=== PATIENT | male | born 1980 | race Caucasian/White ===

== ENCOUNTER 2017-06-21 09:27 | Day surgery (SDC) | payer BC ==
[2017-06-20 08:47] VITALS: BMI 29.1
[2017-06-21] MEDS ORDERED: Oxymetazoline HCl 0.05% ( 15 ML ) ONE (10:08)
[2017-06-21] MEDS ORDERED: Midazolam HCl 2 mg/2 ml Vial ONE (10:43)
[2017-06-21] MEDS ORDERED: Fentanyl 250 MCG/5 ML VIAL ONE (11:12)
[2017-06-21] MEDS ORDERED: Lidocaine 1% w/Epinephrine 1:200K 30 ML VIAL ONE (11:15)
[2017-06-21] MEDS ORDERED: Bacitracin Zinc Ointment 30 gm TUBE ONE (11:16)
[2017-06-21] MEDS ORDERED: Ondansetron HCl/PF 4 MG/2 ML Vial ONE (12:04)
[2017-06-21] MEDS ORDERED: Dexamethasone 20 MG/5 ML VIAL ONE (12:04)
[2017-06-21] MEDS ORDERED: Propofol 200 MG/20 ML VIAL ONE ×2 (12:04)
[2017-06-21] MEDS ORDERED: Lidocaine 2% PF 10 ML AMP (For Epidural Use) ONE (12:04)
[2017-06-21] MEDS ORDERED: Glycopyrrolate 0.2 MG/ML 5 ML SYRINGE ONE (12:04)
[2017-06-21] MEDS ORDERED: Ferric Subsulfate 8 ML BOT ONE (12:51)
--- NOTE | 2017-06-21 13:23 | OP ---
PREOPERATIVE DIAGNOSES: Chronic tonsillitis, hypertrophic obstructive tonsils, hypertrophic obstruc tive uvula, profound septal deformity, and hypertrophic obstructive inferior turbinates. PROCEDURES PERFORMED: 1. Septoplasty. 2. Bilateral nasal endoscopy with submucosal resection of inferior turbinates. 3. Tonsillectomy over 12 years of age. 4. Partial uvulectomy. PROCEDURE #1: SEPTOPLASTY. PROCEDURE IN DETAIL: After consent was obtained, the patient was identified, brought to the operati ng room, and placed on the operating room table in the supine position. Consent was obtained, notif patricia the patient of the possibility of additional infections, bleeding, brain injury, and eye/orbita l injury. The patient was placed on the operating room table, and general endotracheal anesthesia and intravenous access was obtained. The patient was then positioned, prepped and draped for endosc opic sinus surgery. Nasal preparation included trimming nasal vestibular hairs and spraying in topi chun Afrin. We then placed Afrin topical solution on nasal pledgets and strategically located them i ntranasally. The perinasal mucosa was injected with 1% lidocaine with 1:100,000 epinephrine in the submucoperichondrial plane of the septum, lateral nasal wall, and anterior to the uncinate. The pat ient was then prepped and draped in a sterile fashion and positioned for endoscopic sinus surgery. After local anesthesia was infiltrated into the submucoperichondrial plane, a standard [place] incis ion was made with a #15 blade down to the level of the septal cartilage. The caudal elevator was us ed to elevate the mucoperichondrium from the underlying cartilage. We then proceeded beyond the bon y cartilaginous junction and elevated the bony periosteum as well. Great attention was paid to the spur to prevent rent formation in the septal flap. A transcartilaginous incision was then made, whil e preserving an adequate dorsal and caudal cartilaginous strut for tip support. The deformed cartil age was removed and disarticulated from the bony cartilaginous junction and maxillary crest. This w as placed in saline and would later be crushed and returned to the mucoperichondrial envelope. We t hen elevated the contralateral periosteum from the bony cartilaginous region and removed the deforme d portions of the bone and bony spurs. The cartilage was then crushed and placed back into the muco perichondrial envelope and the mucosa was re-approximated with a quilting stitch composed of rapidly absorbent gut suture. The Guzman incision was also closed with interrupted gut suture. At the co mpletion of the case, Emmanuel splints were placed and suture secured to the caudal septum. At this point, we then turned our attention to the contralateral side and proceeded with endoscopic sinus surgery. At the completion of the case, Rice keel splints were placed in the ethmoid cavities after the ethmo idectomy. There were no complications. The patient tolerated the procedure well and was discharged to the recovery room in stable condition prior to return to the preoperative Day Stay with ultimate discharge home. Prescriptions for pain medication and antibiotics were provided. The patient rece ived intramuscular Depo-Medrol during the case. PROCEDURE #2: BILATERAL NASAL ENDOSCOPY WITH SUBMUCOSAL RESECTION OF INFERIOR TURBINATES. PROCEDURE IN DETAIL: After consent was obtained, the patient was identified, brought to the operati ng room, and placed on the operating room table in the supine position. Consent was obtained, notif patricia the patient of the possibility of additional infections, bleeding, brain injury, and eye/orbita l injury. The patient was placed on the operating room table, and general endotracheal anesthesia and intravenous access was obtained. The patient was then positioned, prepped and draped for endosc opic sinus surgery. Nasal preparation included trimming nasal vestibular hairs and spraying in topi chun Afrin. We then placed Afrin topical solution on nasal pledgets and strategically located them i ntranasally. The perinasal mucosa was injected with 1% lidocaine with 1:100,000 epinephrine in the submucoperichondrial plane of the septum, lateral nasal wall, and anterior to the uncinate. The pat ient was then prepped and draped in a sterile fashion and positioned for endoscopic sinus surgery. With the 0-degree endoscope, the patient underwent systematic nasal endoscopy. There were no suspic ious internasal masses or lesions identified. We then focused our attention to the osteomeatal comp adam region under the middle turbinate. At this point, we then turned our attention to the contralateral side and proceeded with endoscopic sinus surgery. At the completion of the case, Rice keel splints were placed in the ethmoid cavities after the ethmo idectomy. There were no complications. The patient tolerated the procedure well and was discharged to the recovery room in stable condition prior to return to the preoperative Day Stay with ultimate discharge home. Prescriptions for pain medication and antibiotics were provided. The patient rece ived intramuscular Depo-Medrol during the case. PROCEDURE #3: TONSILLECTOMY OVER 12 YEARS OF AGE. PROCEDURE IN DETAIL: After consent was obtained, the patient was identified, brought to the operati ng room, and placed on the operating table in the supine position. General endotracheal anesthesia and intravenous access was obtained and we proceeded with positioning the patient for oropharyngeal surgery. Oropharyngeal exposure was obtained with a Katrina-Conrado mouth gag after a head drape was pl aced and secured with a towel clip. The Katrina-Conrado mouth gag was then suspended from the [place] tray and palatal elevation was achieved with a red rubber catheter. The right tonsil was addressed firs t. We used a curved Allis to grasp the tonsil and retract it medially as an anterior pillar incisio n was made with a #12 blade. The retrotonsillar fascial plane was then established and blunt dissec tion was performed with the suction cautery. Blood vessels were anticipated, identified, and cauter ized as they were encountered. Ultimately, dissection was carried to the posterior tonsillar pillar mucosa which was incised hemostatically, as well as the base of tongue connection. The tonsil was then passed off as a specimen and bleeding points within the tonsillar bed were cauterized under dir ect visualization. We subsequently turned our attention to the contralateral side, where using a si milar technique, a near identical procedure was performed. Again, the tonsil was grasped and retrac gabbie medially with a curved Allis as an anterior pillar incision was made with a #12 blade. The retr otonsillar fascial plane was established and while the anterior pillar was retracted medially, the h emostatic blunt dissection of the tonsil with a suction cautery was performed with blood vessels ant icipated, identified, and cauterized as they were encountered. Again, dissection continued to the b ase of tongue and posterior tonsillar pillar mucosa which was incised in a hemostatic fashion. The tonsillar beds were then carefully inspected and bleeding points were identified and cauterized with a suction cautery. After this portion of the procedure, hemostasis was completely obtained. The p atient's oral cavity was copiously irrigated with iced saline and subsequently suctioned. We then u sed the red rubber catheter to suction the gastric contents and the patient was subsequently aroused , awakened, and extubated without difficulty and transported to the recovery room in stable conditio n. There were no complications. PROCEDURE #4: PARTIAL UVULECTOMY. PROCEDURE IN DETAIL: The uvula was then grasped and retracted inferiorly as vertical incisions were made on either side of the insertion of the uvula into the soft palate. A crescentic portion of so ft palate was then removed on each side of the relaxing incision, and the uvula was transected at th e site where it normally would have interfaced with the soft palate. The anterior and posterior asp ect of the wound was then reapproximated with interrupted chromic sutures. The patient was then margaret kened, extubated, and transferred to recovery where patient remained in stable condition prior [facility] home.
[2017-06-21] MEDS ORDERED: Hydrocodone-Acetamin 15 ML UDCUP ONE (14:23)
== END 2017-06-21 15:00 | disposition home or self-care (01) ==
LOC: SDC 09:27
PROVIDERS: ATTEND Specialist
PROC: 0CTPXZZ Resection of Tonsils, External Approach (ICD-10-PCS; principal; 2017-06-21)
PROC: 09RM47Z Replacement of Nasal Septum with Autologous Tissue Substitute, Percutaneous Endoscopic Approach (ICD-10-PCS; principal; 2017-06-21)
PROC: 09TL8ZZ Resection of Nasal Turbinate, Via Natural or Artificial Opening Endoscopic (ICD-10-PCS; principal; 2017-06-21)
PROC: 0CBNXZZ Excision of Uvula, External Approach (ICD-10-PCS; principal; 2017-06-21)
DX: J35.3 Hypertrophy of tonsils with hypertrophy of adenoids (principal); J34.3 Hypertrophy of nasal turbinates; J34.2 Deviated nasal septum; K13.79 Other lesions of oral mucosa; G56.00 Carpal tunnel syndrome, unspecified upper limb; E78.5 Hyperlipidemia, unspecified; K58.0 Irritable bowel syndrome with diarrhea; M54.16 Radiculopathy, lumbar region; F41.9 Anxiety disorder, unspecified; G47.00 Insomnia, unspecified; Z79.2 Long term (current) use of antibiotics; Z79.899 Other long term (current) drug therapy; Z98.52 Vasectomy status; Z98.890 Other specified postprocedural states; Z87.891 Personal history of nicotine dependence
CPT/HCPCS: 88304; J0131; J1100; J2001; J2250; J2405; J2704; J3010